=== PATIENT | male | born 2000 | race African-American/Black ===

== ENCOUNTER 2025-01-08 18:58 | Emergency (ER) | payer MEDICAID, OTHER ==
[~2025-01-08] VITALS: Ht 182.9 cm; Wt 72.0 kg
[2025-01-08 19:15] VITALS: O2SAT 98
[2025-01-08] MEDS ORDERED: AMOX-494 MT (20:25)
[2025-01-08] MEDS ORDERED: IBUP-2029 MT (20:25)
[2025-01-08 21:45] VITALS: BP 108/64; PULSE 71; RESP 20; TEMP 37.2; O2SAT 98
== END 2025-01-08 23:18 | disposition home or self-care (01) ==
LOC: ER 19:12
DX: J02.9 Acute pharyngitis, unspecified (principal)
CPT/HCPCS: 87430; 99283